=== PATIENT | female | born 1995 | race Caucasian/White ===

== ENCOUNTER 2017-01-13 08:31 | Day surgery (SDC) | payer BC ==
[~2017-01-13] VITALS: Ht 157.5 cm; Wt 103.0 kg
[~2017-01-13 08:31] MED LIST: LACTATED RINGERS 1,000 ML IV SCH; LEVO1TBD8 PO; MNTL10T PO; SODIUM CHLORIDE FLUSH 3 ML SYR IV PRN
--- OUTSIDE RECORDS SUMMARY | 2017-01-13 08:35 | XMS REPORT | Summary of Care ---
Author Author Severo Hill M.D. 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 Medications Name Dates Details Flovent HFA 110 MCG/ACT Inhalation Aerosol Refills: 0 Start 13-Nov-2016 Active Fluticasone Propionate 50 MCG/ACT Nasal Suspension Refills: 0 Start 13-Nov-2016 Active Multivitamins Oral Capsule Refills: 0 Start 13-Nov-2016 Active ProAir HFA 108 (90 Base) MCG/ACT Inhalation Aerosol Solution Refills: 0 Start 13-Nov-2016 Active Quasense 0.15-0.03 MG Oral Tablet Refills: 0 Start 13-Nov-2016 Active Singulair 10 MG Oral Tablet Refills: 0 Start 13-Nov-2016 Active Allergies and Adverse Reactions Name Dates Details No Known Drug Allergies (Allergy) Status: Active Procedures Procedure Dates Details History of Oral Surgery Tooth Extraction Hamilton Tooth Procedures not documented Immunization Name Dates Details Immunizations not documented Family History Name Dates Details Family history of cardiac disorder (V17.49, Z82.49) Status: Active Family history of hyperlipidemia (V18.19, Z83.49) Status: Active Name Dates Details Family history of No significant past medical history Status: Active Social History Name Dates Details - Status: Name Dates Details Never smoker Vital Signs Date Test Result Details 24-Dec-2016 09:33 Temperature 99 f Status: Comments: Method: Heart Rate 86 /min Status: Comments: Location: ; Weight 227 lb Status: Results Date Description Value Details 24-Dec-2016 14:19 CBC w/ Auto Diff 7150 WBC 5.8 K/uL Range: 4.5-11.0 RBC 4.67 mil/uL Range: 3.60-5.00 HGB 14.3 g/dL Range: 12.0-16.0 HCT 43.8 % Range: 36.0-48.0 MCV 93.9 fL Range: 80.0-99.0 MCH 30.6 pg Range: 27.3-32.5 MCHC 32.6 % Range: 32.0-36.0 RDW 14.3 % Range: 11.6-14.8 PLATELETS 318 K/uL Range: 150-400 MPV 8.0 fL Range: 6.0-11.0 %NEUTRO 63.8 % Range: 37.0-80.0 %LYMPHS 26.5 % Range: 13.0-50.0 %MONO 7.4 % Range: 0.0-12.0 %EOS 0.7 % Range: 0.0-7.0 %BASO 0.2 % Range: 0.0-2.5 %FRANCISCA 1.4 % Range: 0.0-5.0 NEUTRO 3.7 K/uL Range: 2.0-6.9 LYMPHS 1.5 K/uL Range: 0.6-3.4 MONOS 0.4 K/uL Range: 0.0-0.9 EOS 0.0 K/uL Range: 0.0-0.7 BASO 0.0 K/uL Range: 0.0-0.2 14:31 PROTIME PANEL 7000 PROTIME 13.1 secs Range: 12.0-14.9 INR 1.03 14:32 PTT 7500 PTT 27.0 secs Range: 23.0-34.7 Plan of Care Name Dates Details Planned Observations Planned Goals not documented Planned Encounters Appointment; Provider: Severo Hill M.D. On 13-Jan-2017 11:30 Interventions Provided Labs/Procedures/ImagingCBC w/ Auto Diff 7150; Done: Dec 24 2016 10:02AMPROTIME PANEL 7000; Done: Dec 24 2016 10:02AMPTT 7500; Done: Dec 24 2016 10:02AM Instructions Name Dates Details Instructions not documented Encounters Appointment; Severo Hill M.D. Encounter Diagnosis: Problem not documented On 24-Dec-2016 09:15
[2017-01-13] MEDS ORDERED: ONDANSETRON 2 MG/ML (Z0FRAN) 2 ML VIAL IV ONE (08:55)
[2017-01-13] MEDS ORDERED: diphenhydrAMINE 50 MG/ML INJ (BENADRYL) IV ONE (08:55)
[2017-01-13 08:57] VITALS: BP 124/71
[2017-01-13] MEDS ORDERED: ALFENTANIL 500 MCG/ML (ALFENTA) 5 ML AMP IV ONE (10:52)
[2017-01-13] MEDS ORDERED: MIDAZOLAM 2 MG/2 ML (VERSED) VIAL ONE (10:52)
[2017-01-13] MEDS ORDERED: PROPOFOL 20 ML IV ONE (10:53)
[2017-01-13] MEDS ORDERED: SUCCINYLCHOLINE 20 MG/ML 10 ML VIAL ONE (10:53)
[2017-01-13] MEDS ORDERED: IBUPROFEN SUSP 100MG/5ML (MOTRIN) UDC ONE (11:10)
[2017-01-13] MEDS ORDERED: DEXAMETHASONE 10 MG/ML (DECADRON) VIAL ONE (11:10)
[2017-01-13] MEDS ORDERED: CHLORASEPTIC LOZENGE MM PRN (11:35)
[2017-01-13] MEDS ORDERED: ACETAMINOPHEN/CODEINE ELIXIR 120MG-12MG/5ML (TYLENOL W/CODEINE) UDC PO PRN (11:35)
[2017-01-13] MEDS ORDERED: ONDANSETRON 2 MG/ML (Z0FRAN) 2 ML VIAL IV PRN (11:35)
[2017-01-13] MEDS ORDERED: ACETAMINOPHEN 325 MG TAB (TYLENOL) PO PRN (11:35)
[2017-01-13 11:47] VITALS: BP 135/89
[2017-01-13 12:03] VITALS: BP 135/85
[2017-01-13 12:18] VITALS: BP 143/91
[2017-01-13 12:36] VITALS: BP 151/90
--- NOTE | 2017-01-14 08:59 | OPERATIVE REPORT ---
DATE OF OPERATION: 01/13/2017 [facility] NO.: [id number] PRE-OPERATIVE DIAGNOSES: Chronic tonsillitis, adenotonsillar hypertrophy and halitosis. POST-OPERATIVE DIAGNOSES: Chronic tonsillitis, adenotonsillar hypertrophy and halitosis. OPERATIVE PROCEDURE: Tonsillectomy and adenoidectomy with Coblation SURGEON: Severo Hill MD ANESTHESIA: General endotracheal INDICATION: This 21-year-old female has a history of chronic tonsillitis with cryptic debris, recurrent infection and chronic infection with halitosis. OPERATIVE FINDINGS: 3+, very cryptic tonsils and moderate sized cryptic adenoids. OPERATIVE NOTE: Following informed consent the patient was taken to the operating room and placed in the supine position. Satisfactory general endotracheal anesthesia was obtained. TONSILLECTOMY AND ADENOIDECTOMY USING COBLATION: The patient's head was then placed in the Lori position and a Pro-Johnathan mouth gag was inserted. The right tonsil was grasped and pulled to the midline. It was then dissected free using the coblation method dissecting the tonsil away from the tonsil bed and achieving hemostasis with the coagulation from this device. Next the left tonsil was grasped and pulled to the midline. It was dissected free using blunt dissection and the coblation device. Hemostasis was achieved with coagulation from this device as well. Next a red rubber catheter was placed to suspend the palate. The adenoids were removed using the coblation device removing tissue and achieving hemostasis with coagulation as necessary. Both the oropharynx and nasopharynx were irrigated with saline. The procedure was tolerated well and the patient was taken to the recovery room in good condition
== END 2017-01-13 12:42 | disposition home or self-care (01) ==
LOC: ASC 08:31
PROVIDERS: ATTEND Otolaryngology
DX: J35.01 Chronic tonsillitis (principal); J35.3 Hypertrophy of tonsils with hypertrophy of adenoids; R19.6 Halitosis; Z77.22 Contact with and (suspected) exposure to environmental tobacco smoke (acute) (chronic); J45.990 Exercise induced bronchospasm; E66.9 Obesity, unspecified; Z79.899 Other long term (current) drug therapy
CPT/HCPCS: 42821; 84703; J0330; J1100; J1200; J2250; J2405; J7120; 36415